=== PATIENT | male | born 2000 | race Two or more races ===

== ENCOUNTER 2023-12-20 15:26 | Emergency (ER) | payer OTHER ==
[2023-12-20 15:40] VITALS: BMI 34.4
[2023-12-20] MEDS ORDERED: ACETAMINOPHEN INJECTION 100 ML IVPB ONE (16:58)
[2023-12-20] MEDS ORDERED: ONDANSETRON 4 MG/2 ML VIAL ONE (16:59)
[2023-12-20] MEDS ORDERED: FAMOTIDINE 10 MG/ML VIAL IVPB ONE ×2 (16:59→17:12)
[2023-12-20 17:07] LABS: BASO % 0.1 % (0-2.0); HEMATOCRIT 48.6 % (35.4-49); HEMOGLOBIN 16.7 GM/dL (11.7-16.9); LYMPH % 11.5 % (8-40); MCH 29.3 pg (25.7-33.7); MCHC 34.4 g/dl (32.0-35.9); MEAN CELL VOLUME 85.4 fl (80-96); MEAN PLT VOLUME 9.3 fl (7.5-11.1); MONO % 8.3 % (3.8-10.2); NEUT % 80.1 % (42.8-82.8); PLATELET COUNT 168 10^3/uL (134-434); RDW 13.9 % (11.9-15.9); WHITE BLOOD COUNT 7.2 K/mm3 (4.0-10.0)
[2023-12-20] MEDS: SODIUM CHLORIDE 0.9% 500 ML INFUS.BAG IV ONE (17:19)
[2023-12-20] MEDS: ACETAMINOPHEN 1000 MG/100 ML BAG IVPB ONE (17:19)
[2023-12-20] MEDS: ONDANSETRON 4 MG/2 ML VIAL IVPUSH ONE (17:20)
[2023-12-20] MEDS: FAMOTIDINE 20 MG/50 ML IVPB 20 MG/50 ML MG IVPB ONE (17:20)
[2023-12-20 17:25] LABS: POTASSIUM 3.7 mmol/L (3.5-5.1)
[2023-12-20 17:27] LABS: CALCIUM 8.7 mg/dL (8.5-10.1)
[2023-12-20 17:28] LABS: ALBUMIN 3.8 g/dl (3.4-5.0); BLOOD UREA NITROGEN 11.1 mg/dL (7-18)
[2023-12-20 17:31] LABS: CREATININE 1.1 mg/dL (0.55-1.3)
[2023-12-20 17:32] LABS: BILIRUBIN,TOTAL 1.1 mg/dL (0.2-1); TOT PROT 7.6 g/dl (6.4-8.2)
[2023-12-20 18:09] VITALS: TEMP 99.1
[2023-12-20 19:07] VITALS: BP 130/82; PULSE 88; RESP 18
== END 2023-12-20 19:06 | disposition home or self-care (01) ==
LOC: JER 15:26
PROC: 3E033GC Introduction of Other Therapeutic Substance into Peripheral Vein, Percutaneous Approach (ICD-10-PCS; principal; 2023-12-20)
PROC: 3E033GC Introduction of Other Therapeutic Substance into Peripheral Vein, Percutaneous Approach (ICD-10-PCS; 2023-12-20)
PROC: 3E033GC Introduction of Other Therapeutic Substance into Peripheral Vein, Percutaneous Approach (ICD-10-PCS; 2023-12-20)
DX: R11.2 Nausea with vomiting, unspecified (principal); K52.9 Noninfective gastroenteritis and colitis, unspecified; Z20.822 Contact with and (suspected) exposure to COVID-19
CPT/HCPCS: 0241U-QW; 36415; 80053; 85025; 99284-25; J0131

== ENCOUNTER 2024-05-19 20:51 | Emergency (ER) | payer OTHER ==
[2024-05-19 21:09] VITALS: BP 122/79; PULSE 69; RESP 18; TEMP 98.5; BMI 32.8
[2024-05-19] MEDS ORDERED: FAMOTIDINE 20 MG TABLET ONE (21:30)
[2024-05-19] MEDS ORDERED: ONDANSETRON *ODT* 4 MG TABLET ONE (21:30)
[2024-05-19] MEDS ORDERED: MAG HYDROX/AL HYDROX/SIMETH 30 ML UNIT-DOSE CUP ONE (21:30)
[2024-05-19] MEDS: FAMOTIDINE 20 MG TABLET PO ONE (21:38)
[2024-05-19] MEDS: ONDANSETRON *ODT* 4 MG TABLET SL ONE (21:38)
[2024-05-19] MEDS: MAG HYDROX/AL HYDROX/SIMETH -MYLANTA- ORAL SUSPENSION PO ONE (21:38)
[2024-05-19 21:54] LABS: BASO % 0.2 % (0-2.0); EOS % 0.9 % (0-4.5); HEMATOCRIT 43.2 % (35.4-49); HEMOGLOBIN 14.7 GM/dL (11.7-16.9); MCH 28.9 pg (25.7-33.7); MONO % 5.7 % (3.8-10.2); NEUT % 60.2 % (42.8-82.8); PLATELET COUNT 254 10^3/uL (134-434); RBC 5.09 M/mm3 (4.00-5.60); RDW 13.8 % (11.9-15.9); WHITE BLOOD COUNT 8.8 K/mm3 (4.0-10.0)
[2024-05-19 22:22] LABS: POTASSIUM 4.1 mmol/L (3.5-5.1)
[2024-05-19 22:25] LABS: CALCIUM 9.2 mg/dL (8.5-10.1)
[2024-05-19 22:26] LABS: ALBUMIN 4.2 g/dl (3.4-5.0)
[2024-05-19 22:29] LABS: CREATININE 0.8 mg/dL (0.55-1.3)
[2024-05-19 22:30] LABS: BILIRUBIN,TOTAL 0.6 mg/dL (0.2-1)
== END 2024-05-20 00:20 | disposition home or self-care (01) ==
LOC: JER 20:51
DX: R14.0 Abdominal distension (gaseous) (principal); R10.13 Epigastric pain; R10.31 Right lower quadrant pain; R10.32 Left lower quadrant pain
CPT/HCPCS: 36415; 74018-TC-FY; 80053; 83690; 85025; 99284-25; Q0162